=== PATIENT | female | born 1975 | race Caucasian/White ===

== ENCOUNTER 2019-04-26 06:02 | Observation (INO) ==
--- NOTE | 2019-04-25 15:39 | Anesthesia Evaluation PreOp ---
Date of Encounter: 04/26/19 Time of Encounter: 07:09 - Past History Planned Operation: robo right ovarian cystectomy Cardiac History: HTN, Pacemaker/ICD (2012) Pulmonary History: Former smoker, Asthma, XIOMARA Dx (on O2 at night, doesn't use CPAP) Other Medical History: Hepatic (faTTY LIVER), Diabetes Type I, Other (super morbid obesity) Anesthesia History: No Prior Anesthetic Complications, Past Anesthesia (CATHY, TUBAL, GASTRIC BYPASS, UVPP) Alcohol Use: none Drug use: none Medications and Allergies Mometasone/Formoterol [Dulera 100 Mcg/5 Mcg Inhaler] 2 puff IH BID 08/09/15 [History] metFORMIN [Glucophage] 1,000 mg PO BIDWM 08/09/15 [History] rOPINIRole [Requip] 2 mg PO HS 08/09/15 [History] Ascorbic Acid [Vitamin C] 500 mg PO DAILY 03/27/16 [History] Vitamin B Complex 1 each PO DAILY 03/27/16 [History] Sertraline [Zoloft] 100 mg PO DAILY 09/16/16 [History] Albuterol Sulfate [Ventolin Hfa] 2 puff IH Q4H PRN 02/15/18 [History] Cetirizine HCl [All Day Allergy] 10 mg PO DAILY 02/15/18 [History] Cholecalciferol (D-3) [Vitamin D] 1,000 unit PO DAILY 02/15/18 [History] Fluticasone Propionate Nasal [Flonase] 1 spr NS DAILY 02/15/18 [History] Insulin Glargine,Hum.rec.anlog [Basaglar Kwikpen U-100] 50 unit SQ DAILY 02/15/18 [History] Lisinopril/Hydrochlorothiazide [Zestoretic 20-25 mg Tablet] 1 tab PO DAILY 02/15/18 [History] Meclizine HCl [Verticalm] 25 mg PO BID 02/15/18 [History] Montelukast [Singulair] 10 mg PO DAILY 02/15/18 [History] Thiamine HCl [Vitamin B-1] 100 mg PO DAILY 02/15/18 [History] Tizanidine HCl 4 mg PO TID PRN 02/15/18 [History] raNITIdine HCl [Zantac] 150 mg PO HS 02/15/18 [History] Loperamide [Imodium] 2 mg PO Q4HR PRN capsule 02/17/18 [Rx] Rivaroxaban [Xarelto] 20 mg PO 1700 #30 tablet 02/17/18 [Rx] Sotalol [Betapace] 80 mg PO Q12H #60 tablet 02/17/18 [Rx] Dicyclomine [Bentyl] 10 mg PO QID PRN #20 capsule 11/03/18 [Rx] Allergy/AdvReac Type Severity Reaction Status Date / Time No Known Allergies Allergy Verified 09/16/16 10:09 - Meds/Allergy Pre-op Review Medications Reviewed: Yes Allergies Reviewed: Yes Beta Blockers on Current Med List: Yes If Beta Blockers taken, Date/Time (Last Dose taken): today 0500 Anesthesia Results - Labs Laboratory Tests 04/11/19 04/11/19 11:37 11:37 Hgb 12.6 Hct 39.5 Potassium 4.0 - Imaging Additional studies: STRESS TEST 2018: Impression: Pharmacologic stress ECG is negative for ischemia at level of heart rate achieved. Gated EF = 73%. Small sized, mild to moderate intensity, fixed apex, apical inferior, and apical lateral defect with normal wall motion. These findings are consistent with artifact. Perfusion imaging was negative for ischemia or infarct. Anesthesia Exam Selected Entries 04/26/19 06:57 Temperature 98.6 F Pulse Rate 81 Respiratory Rate 18 Blood Pressure 143/73 O2 Sat by Pulse Oximetry 97 Weight: 158kg BMI 56 - HEENT Pupil (Motor): EOMI Mallampati: III Teeth: Normal Oral Opening: Greater than 3 - ACUTE CARE OCCUPATIONAL THERAPIST LOC: Oriented ACUTE CARE OCCUPATIONAL THERAPIST Motor: Normal RUE, Normal LUE, Normal RLE, Normal LLE, Normal Face ACUTE CARE OCCUPATIONAL THERAPIST Sensory: Normal: RUE, LUE, RLE, LLE, Face - Cardiac Rhythm: Regular Murmur: None - Pulmonary Breath Sounds: bilateral Clear Respiratory Effort: Symmetrical Anesthesia Assess/Plan ASA Score: 3 Level of consciousness: Cooperative, Oriented Anesthetic Plan: General Monitoring Plan: Standard Monitors Recovery Plan: PACU (agrees to GA)
[2019-04-26] MEDS ORDERED: CeFAZolin Syr 3,000MG/30 ML 3,000 MG/30 ML SYRINGE IVPB ONE (06:25)
[2019-04-26] MEDS ORDERED: Albuterol 2.5 MG/3 ML NEBULIZER IH ONE (06:26)
[2019-04-26] MEDS ORDERED: Ringers Solution, Lactated 1,000 ML IVC SCH ×2 (06:30→07:15)
[2019-04-26] MEDS ORDERED: Lidocaine HCL 4 ML Topical Solution (Laryng-O-Jet Kit Sterile Pak) TP ONE (07:05)
--- NOTE | 2019-04-26 07:05 | History & Physical Report ---
Date of Encounter: 04/26/19 Time of Encounter: 07:04 24 Hour HP Update - Instructions Instructions: If the History and Physical is less than 30 days old and was completed prior to A.M. admission and or procedure and has NOT been updated on calendar day of procedure please complete this update prior to performing procedure. - Update Patient reports changes in Medical Condition: No Changes in examination, assessment, or condition: No Changes in Medication: No Preop tests/diagnostics Reviewed: Yes Surgery Remains Indicated: Yes Consent for Planned Operative Procedure(s) Verified: Yes - Pre-Operative Checklist Preoperative Checklist Indicated: Yes Prophylactic Antibiotic Ordered: Yes Home Medications Include Beta Britt: No Beta Britt Taken Today (Day of Surgery): No Beta Britt Taken Yesterday (Day Prior to Surgery): No Is VTE Prophylaxis Indicated?: Yes
[2019-04-26] MEDS ORDERED: Bupivacaine/EPI 1:200k 0.25%PF 10 ML VIAL INFILT ONE (07:12)
[2019-04-26] MEDS ORDERED: *HR* Midazolam HCl 2 MG/2 ML VIAL ONE (07:13)
[2019-04-26] MEDS ORDERED: *HR* FentaNYL (PF) 100 MCG/2 ML VIAL ONE ×2 (07:13→10:04)
[2019-04-26] MEDS ORDERED: *HR* Propofol 200 MG/20 ML VIAL IVP ONE ×2 (07:13→07:15)
[2019-04-26] MEDS ORDERED: Ondansetron 4 MG/2 ML VIAL ONE (07:14)
[2019-04-26] MEDS ORDERED: *HR* Succinylcholine 200 MG/10 ML VIAL IVP ONE (07:14)
[2019-04-26] MEDS ORDERED: *HR* Rocuronium Bromide 50 MG/5 ML VIAL ONE ×2 (07:14→09:11)
[2019-04-26] MEDS ORDERED: Dexamethasone 4 MG/ML VIAL ONE (07:14)
[2019-04-26] MEDS ORDERED: Lidocaine -MPF 2% 2 ML VIAL ONE (07:14)
[2019-04-26] MEDS ORDERED: *HR* Promethazine 25 MG/ML VIAL IVP PRN (07:15)
[2019-04-26] MEDS ORDERED: *HR* HYDROmorphone (PF) 1 MG/ML SYRINGE IVP PRN (07:15)
[2019-04-26] MEDS ORDERED: Ketorolac 30 MG/ML VIAL IVP ONE (07:15)
[2019-04-26] MEDS ORDERED: *HR* OxyCODONE Immed Rel 5 MG TABLET PO PRN (07:15)
[2019-04-26] MEDS ORDERED: *HR* HYDROMORPHONE 2 MG/ML VIAL ONE (08:38)
[2019-04-26] MEDS ORDERED: Esmolol 100 MG/10 ML VIAL IVP ONE (09:17)
[2019-04-26] MEDS ORDERED: *HR* OxyCODONE/APAP 5/325 TABLET PO ONE (10:27)
--- NOTE | 2019-04-26 10:32 | OB/GYN Procedure Note ---
Laparoscopy Procedure - Diagnosis Date of procedure: 04/26/19 Pre-op diagnosis: chronic pelvic pain, ovarian cyst Post-op diagnosis: same, pelvic adhesive disease, other (Multiple and large fibroepithelial cysts arising from the uterine fundus benign per frozen section, uterus with multiple pustular implants, left ovary with pustule implants, right ovary multiple clear pustule implants anterior and posterior cul-de-sac. Disease adhesions twins omentum and peritoneal cyst) - Procedure Laparoscopy procedure: operative laparoscopy, right salpingo oophorectomy, lysis of pelvic adhesions, other (robotic assistance, resection of multiple enlarged cystic lesions from uterine fundus) Surgeon: Harshad Brewster Was there an warehouse assistant present: Yes Melt House Drag Operator: Agata Duenas Anesthesia Type: General Estimated blood loss (cc): 50 Complications: none Specimens: right ovary, right fallopian tube Findings: Uterus normal size with multiple enlarged cystic lesions (benign per frozen section), ovaries normal size with multiple clear pustular implants, normal fallopian tubes, adhesions b/w omentum and cystic lesions. Disposition: PACU Narrative: Description procedure: Patient was taken operating room where general anesthesia was administered. She was prepped draped in usual sterile fashion bladder was drained of clear urine with Chua catheter. Cervix is visualized and grasped with single-tooth tenaculum and acorn uterine manipulators placed in the cervix from the ablation uterus. Patient had 2 previous umbilical incision therefore 5 mm trocar was introduced and palmers point in the left upper quadrant. Insufflation was performed and there is no evidence of upper abdominal adhesions. The bowel was clear of the abdominal wall. 12 mm trochars placed just below the umbilicus another 8 mm trochars placed in the right midabdomen another 12 mm trocar was placed in the right upper quadrant all under direct visualization. The 5 millimeter trocar in the left upper quadrant was changed to an 8 mm trochar. This point the robot was docked. Patient was placed in steep Trendelenburg position. Bowel manipulated out of the operative field. There was some thin stringy omental adhesions between the omentum and large cystic structure measuring approximately 8 cm in the midline of the lower abdomen. Monopolar scissors were used to cut the adhesions. I gently neto pulated the cystic lesion disabled was arising from at this point I did drain several cc of clear straw-colored fluid all preoperative studies it indicated to the cystic lesion was arising from the right ovary however it was found that the right ovary was normal in size and freely of the cystic structure. There were multiple small clear pustule implants on the right ovary as well as the right fallopian tube. The cystic structure the largest being the 8 cm cystic structure that drained was resected as it was noted to be coming from the uterine fundus. This was sent for frozen section. While awaiting the frozen section multiple other smaller cystic lesions were removed from the uterine fundus extended from the right cornea to the left cornua. There were several that were 2-3 cm in size patient had been consented for right oophrectomy and because of the multiple cystic implants on the right fallopian tube and ovary this ovary was removed. These to bipolar electrocautery double cauterized the infundibulopelvic ligament this was then transected. Bipolar electrocautery was then used to cauterize the utero-ovarian ligament and this was then transected. Rest of the connecting tissue to the mesial salpinx was cauterized and transected. Left ovary overall was normal there were some few small clear pustule implants these were cauterized. Hemostasis severe the patient's endometriosis we did entertain the possibility of performing hysterectomy however in speaking with risk umbilical was advised that we do not perform hysterectomy at this point was minimal consent for hysterectomy had not been obtained. This point we therefore placed the the cystic structures as well as right ovary and fallopian tube in Endo Catch bag. All the instruments were removed the robot was undocked and bag was brought through the right upper quadrant 12 mm system port. Pneumoperitoneum was released trochars removed fascia was closed 0 Vicryl skin edges reapproximated with 4-0 Vicryl. Tenaculum and trochars removed from the cervix all sponge and instruments counts are correct patient was taken recovery in good condition.
--- NOTE | 2019-04-26 10:52 | Discharge Summary ---
Outpatient Proc Discharge Plan - Plan Prescriptions: OxyCODONE/APAP 5/325 [Percocet 5/325 MG] 1 each PO Q4HR PRN 7 Days #25 tablet PRN Reason: Pain Prescription Printed Home Medications: Mometasone/Formoterol [Dulera 100 Mcg/5 Mcg Inhaler] 2 puff IH BID 08/09/15 [History] metFORMIN [Glucophage] 1,000 mg PO BIDWM 08/09/15 [History] rOPINIRole [Requip] 2 mg PO HS 08/09/15 [History] Ascorbic Acid [Vitamin C] 500 mg PO DAILY 03/27/16 [History] Vitamin B Complex 1 each PO DAILY 03/27/16 [History] Sertraline [Zoloft] 100 mg PO DAILY 09/16/16 [History] Albuterol Sulfate [Ventolin Hfa] 2 puff IH Q4H PRN 02/15/18 [History] Cetirizine HCl [All Day Allergy] 10 mg PO DAILY 02/15/18 [History] Cholecalciferol (D-3) [Vitamin D] 1,000 unit PO DAILY 02/15/18 [History] Fluticasone Propionate Nasal [Flonase] 1 spr NS DAILY 02/15/18 [History] Insulin Glargine,Hum.rec.anlog [Basaglar Kwikpen U-100] 50 unit SQ DAILY 02/15/18 [History] Lisinopril/Hydrochlorothiazide [Zestoretic 20-25 mg Tablet] 1 tab PO DAILY 02/15/18 [History] Meclizine HCl [Verticalm] 25 mg PO BID 02/15/18 [History] Montelukast [Singulair] 10 mg PO DAILY 02/15/18 [History] Thiamine HCl [Vitamin B-1] 100 mg PO DAILY 02/15/18 [History] Tizanidine HCl 4 mg PO TID PRN 02/15/18 [History] raNITIdine HCl [Zantac] 150 mg PO HS 02/15/18 [History] Loperamide [Imodium] 2 mg PO Q4HR PRN capsule 02/17/18 [Rx] Rivaroxaban [Xarelto] 20 mg PO 1700 #30 tablet 02/17/18 [Rx] Sotalol [Betapace] 80 mg PO Q12H #60 tablet 02/17/18 [Rx] Dicyclomine [Bentyl] 10 mg PO QID PRN #20 capsule 11/03/18 [Rx] OxyCODONE/APAP 5/325 [Percocet 5/325 MG] 1 each PO Q4HR PRN 7 Days #25 tablet 04/26/19 [Rx]
[2019-04-26] MEDS ORDERED: *HR* Dextrose 50 % in Water (Syg) 50 ML SYRINGE IVP PRN ×3 (13:23→17:26)
[2019-04-26] MEDS ORDERED: D5% in Water 1,000 ML IVC PRN ×3 (13:23→17:26)
[2019-04-26] MEDS ORDERED: Dextrose Gel 15 GM/37.5 ML TUBE PO PRN ×6 (13:23→17:26)
--- NOTE | 2019-04-26 14:01 | Anesthesia Evaluation Post Op ---
Date of Encounter: 04/26/19 Time of Encounter: 13:30 - Vital Signs Vital Signs: Selected Entries 04/26/19 12:18 04/26/19 12:50 Temperature 97.4 F L Pulse Rate 70 Pulse Strength [General Skin Assessment] Normal Respiratory Rate 16 Blood Pressure 144/63 O2 Sat by Pulse Oximetry 95 Oxygen Flow Rate (LPM) 5 - Lungs Lungs: Clear Ascult./Percussion - Airway Airway: Non-obstructed - Cardiovascular Regular Rate - Mental Status Mental Status: Alert & Oriented, Answers Appropriately - Pain Pain Scale: 0 Pain Scale used: Numeric (1 - 10) - Nausea Vomiting Nausea Vomiting: Not Present - Hydration Hydration: Tolerates oral liquids, Able to void Notes: 04/26/19 13:59 patient is visibly SOB, O2 sats low and go to low 80's with ambulation even with O2. Lungs clear. Dr Brewster notified and patient will need placed in hospital overnight. - Discharge PostOp Status: Transfer Patient to floor
[2019-04-26] MEDS ORDERED: Ondansetron 4 MG/2 ML VIAL IVP PRN (14:21)
[2019-04-26] MEDS ORDERED: Naloxone 0.4 MG/ML INJ IVP PRN (14:21)
[2019-04-26] MEDS: *HR* OxyCODONE/APAP 5/325 TABLET PO PRN (16:03)
[2019-04-26] MEDS ORDERED: Insulin LISPRO 300 UNITS/3 ML VIAL SQ SCH (16:30)
[2019-04-26] MEDS: Ringers Solution, Lactated 1,000 ML IVC SCH (17:03)
[2019-04-26] MEDS: *HR* Metformin 500 MG TABLET PO SCH (18:09)
[2019-04-26] MEDS ORDERED: rOPINIRole 1 MG TABLET PO SCH (21:00)
[2019-04-26] MEDS ORDERED: Famotidine 20 MG TABLET PO SCH (21:00)
[2019-04-26] MEDS ORDERED: Insulin LISPRO 300 UNITS/3 ML VIAL SQ ONE (21:07)
[2019-04-26] MEDS: Budesonide/Formoterol 80/4.5 1 PUFF INH IH SCH (21:22)
[2019-04-27] MEDS: *HR* OxyCODONE/APAP 5/325 TABLET PO PRN (01:15)
[2019-04-27] MEDS: Ringers Solution, Lactated 1,000 ML IVC SCH (01:17)
--- NOTE | 2019-04-27 07:18 | Discharge Summary ---
Date of Encounter: 04/27/19 Time of Encounter: 07:20 - Discharge Diagnosis (1) History of right salpingo-oophorectomy Priority: Primary Status: Acute Comments: Pt s/p robotic RSO and removal of multiple peritoneal cysts yesterday. She is progressing well. She has asthma and allergies and was kept due to post op hypoxia that seems to be resolving. (2) Atrial fibrillation Priority: Secondary Status: Acute Comments: Will restart Xeralto in 2 days. Currently NSR. Qualifiers: Atrial fibrillation type: chronic Qualified Code(s): I48.2 - Chronic atrial fibrillation (3) Diabetes mellitus Priority: Secondary Status: Chronic Comments: Pt on SSI Qualifiers: Diabetes mellitus type: type 1 Diabetes mellitus complication status: with hyperglycemia Qualified Code(s): E10.65 - Type 1 diabetes mellitus with hyperglycemia (4) Essential hypertension Priority: Secondary Status: Chronic Comments: stable - Discharge Medications Prescriptions: New OxyCODONE/APAP 5/325 [Percocet 5/325 MG] 1 each PO Q4HR PRN 7 Days #25 tablet PRN Reason: Pain No Action Ascorbic Acid [Vitamin C] 500 mg PO DAILY Vitamin B Complex 1 each PO DAILY Sertraline [Zoloft] 100 mg PO DAILY Cholecalciferol (D-3) [Vitamin D] 1,000 unit PO DAILY Fluticasone Propionate Nasal [Flonase] 1 spr NS DAILY Insulin Glargine,Hum.rec.anlog [Basaglar Kwikpen U-100] 50 unit SQ DAILY Lisinopril/Hydrochlorothiazide [Zestoretic 20-25 mg Tablet] 1 tab PO DAILY Meclizine HCl [Verticalm] 25 mg PO BID Montelukast [Singulair] 10 mg PO DAILY raNITIdine HCl [Zantac] 150 mg PO HS Thiamine HCl [Vitamin B-1] 100 mg PO DAILY Albuterol Sulfate [Ventolin Hfa] 2 puff IH Q4H PRN PRN Reason: Shortness Of Breath Cetirizine HCl [All Day Allergy] 10 mg PO DAILY Tizanidine HCl 4 mg PO TID PRN PRN Reason: MUSCLE SPASMS Rivaroxaban [Xarelto] 20 mg PO 1700 #30 tablet Sotalol [Betapace] 80 mg PO Q12H #60 tablet Loperamide [Imodium] 2 mg PO Q4HR PRN capsule PRN Reason: Diarrhea Mometasone/Formoterol [Dulera 100 Mcg/5 Mcg Inhaler] 2 puff IH BID rOPINIRole [Requip] 2 mg PO HS metFORMIN [Glucophage] 1,000 mg PO BIDWM Dicyclomine [Bentyl] 10 mg PO QID PRN #20 capsule PRN Reason: abdominal pain Home Medications: Mometasone/Formoterol [Dulera 100 Mcg/5 Mcg Inhaler] 2 puff IH BID 08/09/15 [History] metFORMIN [Glucophage] 1,000 mg PO BIDWM 08/09/15 [History] rOPINIRole [Requip] 2 mg PO HS 08/09/15 [History] Ascorbic Acid [Vitamin C] 500 mg PO DAILY 03/27/16 [History] Vitamin B Complex 1 each PO DAILY 03/27/16 [History] Sertraline [Zoloft] 100 mg PO DAILY 09/16/16 [History] Albuterol Sulfate [Ventolin Hfa] 2 puff IH Q4H PRN 02/15/18 [History] Cetirizine HCl [All Day Allergy] 10 mg PO DAILY 02/15/18 [History] Cholecalciferol (D-3) [Vitamin D] 1,000 unit PO DAILY 02/15/18 [History] Fluticasone Propionate Nasal [Flonase] 1 spr NS DAILY 02/15/18 [History] Insulin Glargine,Hum.rec.anlog [Basaglar Kwikpen U-100] 50 unit SQ DAILY 02/15/18 [History] Lisinopril/Hydrochlorothiazide [Zestoretic 20-25 mg Tablet] 1 tab PO DAILY 02/15/18 [History] Meclizine HCl [Verticalm] 25 mg PO BID 02/15/18 [History] Montelukast [Singulair] 10 mg PO DAILY 02/15/18 [History] Thiamine HCl [Vitamin B-1] 100 mg PO DAILY 02/15/18 [History] Tizanidine HCl 4 mg PO TID PRN 02/15/18 [History] raNITIdine HCl [Zantac] 150 mg PO HS 02/15/18 [History] Loperamide [Imodium] 2 mg PO Q4HR PRN capsule 02/17/18 [Rx] Rivaroxaban [Xarelto] 20 mg PO 1700 #30 tablet 02/17/18 [Rx] Sotalol [Betapace] 80 mg PO Q12H #60 tablet 02/17/18 [Rx] Dicyclomine [Bentyl] 10 mg PO QID PRN #20 capsule 11/03/18 [Rx] OxyCODONE/APAP 5/325 [Percocet 5/325 MG] 1 each PO Q4HR PRN 7 Days #25 tablet 04/26/19 [Rx] Allergies/Adverse Reactions: Allergy/AdvReac Type Severity Reaction Status Date / Time No Known Allergies Allergy Verified 09/16/16 10:09 Data Procedures and tests throughout hospitalization: Laboratory Tests 04/26/19 04/26/19 04/26/19 06:19 06:56 20:12 POC Glucose 140 H 191 H POC Urine HCG, Qual Negative Labs on day of discharge: Labs from last 24 hours 04/26/19 04/26/19 04/26/19 20:12 06:56 06:19 POC Glucose 191 H 140 H POC Urine HCG, Qual Negative - Impressions Pt s/p robotic RSO and resection of multiple peritoneal cysts. She was kept overnight b/c of oxygen desaturation. Pt has h/o chronic lung dz and uses oxygen at home at night. This am she was sleeping when I entered, she is on oxygen 2 l nc and her sat was 100%. She is taking diabetic diet. Vodiing without difficulty. Good pain control. Date of admission: 04/26/19 13:38 Primary care physician: Minoo Angeles - Patient Status Disposition: Home, Self-Care Condition: Good Functional capacity at discharge: independent ambulation Overall status at discharge: patient is progressing back to baseline - Discharge Instructions Follow Up With: Harshad Brewster MD [Partnered Physician] - Additional Instructions: Follow Up Appointment * May 12, 2019 at 11:15 AM Home Medication List * You have been given a list of your current medications. If you have changes in your medications, update your list. * Provide a list of current medications to your primary care physician. * Carry a copy of your current medications with you in case of an emergency. DISCHARGE INSTRUCTIONS: STRANDING MACHINE OPERATOR SURGERY There are many types of gynecologic surgery. Below, you will find groups of instructions related to caring for yourself after your procedure. There may be instructions that do not apply to you depending on the procedure you had. Before you go home, your nurse will explain these instructions to you and mitchell any special instructions you may have. Be sure to ask your doctor if you have any questions or concerns about any of these instructions. Medications -Continue taking your home medications as prescribed by your doctor prior to surgery. -You will be notified of any changes in home medications before leaving the hospital. -Pain medication may be sent home with you. Take it as directed. It is important to control your pain during recovery. -Antibiotics are sometimes used to prevent infection after surgery. Do not stop taking antibiotics if they were prescribed for you. Take them until they are gone. Diet -You will be eating regular food before you are discharged from the hospital. Eat healthy foods to help you heal more quickly and increase your energy. Avoid foods that may cause gas as this will make you feel uncomfortable. - You many find it difficult to have a bowel movement for a few days after surgery. -Eating a diet high in fiber will help to soften your stool. This includes foods such as cereals, whole grain breads and vegetables. You can also take over the counter fiber supplements and/or stool softeners. - It is also important to drink 6-8 glasses of water a day. Smoking - Smoking increases your changes for post-surgery complications. It is never too late to quit. Ask your nurse or doctor for information to help you stop smoking. Activity - Restrict yourself to light activity and increase your activity level slowly. Rest frequently throughout the day. Be aware that your pain medication may cause drowsiness. It usually takes about 4-8 weeks for the body to heal. - You may walk slowly. DO NOT exercise until your doctor tells you it is safe to do so. - No tampons, douching, or sex for 6 weeks. This allows time for healing. - Lift nothing heavier than 10-15 pounds. - You can drive in 2-4 weeks, unless instructed otherwise by your doctor. - You can expect to return to work or school and other normal activities in about 6 weeks or as directed by your doctor. - When you get home, you may shower normally. If you have an incision, wash the area with soap and water then dry thoroughly after showering. You may have steri-strips (thin strips of tape used to help hold the incision together while it heals). If these are present, remove them in 7 days, they will fall off on their own. Keep the area of your incision clean and dry. When to Call Your Doctor -If you are soaking a sanitary pad with vaginal bleeding within one hour. Some spotting is normal after surgery, but increased bleeding should be reported. -If you have fever, chills, or any reaction to your medication. -If you are unable to urinate, have not urinated for 4-6 hours, have burning with urination or feel like you are not emptying your bladder. -If you have vaginal discharge with a foul odor. -If you have any questions regarding your surgery or medications. -Depending on your procedure, you may have changes in your mood. These are normal feelings. You can talk to your doctor about treatment options. If you have difficulty breathing, chest pain, uncontrolled bleeding or any other emergency, call 911 or report to the nearest emergency department immediately. Follow-up -Your doctor wants to see you for an appointment in 2 weeks -Please call the office to schedule the appointment. It is very important that you keep your follow up appointment. Your doctor will monitor your healing and medications. This will help to avoid complications after your surgery. - Diet and Activity Activity: increase activity as tolerated Diet: advance to your usual diet, diabetic diet Hospital Course STRANDING MACHINE OPERATOR Time Attestation: Total time spent providing and/or coordinating discharge services: Exam - Constitutional Vitals: Temp Pulse Resp BP Pulse Ox 97.9 F 70 14 133/87 99 04/27/19 05:00 04/27/19 05:00 04/27/19 05:00 04/27/19 05:00 04/27/19 05:00 General appearance IM: A&O X 3 - Respiratory Respiratory exam: Present: CTAB - Cardiovascular Cardiovascular exam IM: Present: RRR - GI/Abdominal GI/Abdominal exam IM: normal bowel sounds Incision: normal, intact - Extremities Exam Extremities exam IM: Present: full ROM - Neurological Exam Neurological exam: oriented X3
[2019-04-27] MEDS ORDERED: Insulin LISPRO 300 UNITS/3 ML VIAL SQ SCH (07:30)
[2019-04-27] MEDS: Budesonide/Formoterol 80/4.5 1 PUFF INH IH SCH (07:36)
[2019-04-27 07:52] VITALS: BP 131/76
[2019-04-27] MEDS: *HR* Metformin 500 MG TABLET PO SCH (07:58)
[2019-04-27] MEDS ORDERED: Insulin DETEMIR 100 UNIT/ML X5UNITS SQ SCH (09:00)
[2019-04-27] MEDS ORDERED: Loratadine 10 MG TABLET PO SCH (09:00)
[2019-04-27] MEDS ORDERED: Fluticasone Propionate Nasal 50 MCG/SPRAY BOTTLE NS SCH (09:00)
[2019-04-27] MEDS ORDERED: NON-FORMULARY MEDICATION 1 EACH EACH (Insulin Glargine,Hum.Rec.Anlog [Basaglar Kwikpen U-1 SQ SCH (09:00)
[2019-04-27] MEDS ORDERED: Insulin LISPRO 300 UNITS/3 ML VIAL SQ ONE (20:30)
== END 2019-04-27 09:50 | disposition home or self-care (01) ==
LOC: SAMDAY 06:02 → 1NENUOBS 06:02
PROVIDERS: ADMIT Obstetrics & Gynecology; ATTEND Obstetrics & Gynecology